=== PATIENT | male | born 1950 | race Caucasian/White ===

== ENCOUNTER 2017-11-01 17:25 | Emergency (ER) | payer OTHER, MEDICARE ==
[2017-11-01] MEDS ORDERED: ASPIRIN 81 MG TABLET, CHEWABLE PO ONE (17:47)
[2017-11-01] MEDS ORDERED: ONDANSETRON HCL INJ/PF 4 MG/2 ML SDV IV ONE ×2 (17:48→22:15)
[2017-11-01] MEDS ORDERED: NORMAL SALINE 1000 ML 1,000 ML IV ONE (17:48)
--- NOTE | 2017-11-01 17:53 | ER Document Report ---
ED Medical Screen (RME) - General Chief Complaint: Vomiting Stated Complaint: VOMITING Time Seen by Provider: 11/01/17 17:47 TRAVEL OUTSIDE OF THE [place] IN LAST 30 DAYS: No - HPI Notes: 11/01/17 17:49 Patient is a 67-year-old male with a history of insulin-dependent diabetes, hypertension, acid reflux who presents to the ED complaining of a dry nonproductive cough, nausea, vomiting, diaphoresis, dyspnea, chest pain, epigastric abdominal pain that began last evening. Patient states that he cannot keep any fluids or food down at this time. Patient denies any other significant cardiac history. Denies any headache, fever, neck pain, URI, sore throat, palpitations, syncope, diarrhea, urinary retention, dysuria, hematuria, or rash. I have treated and performed a rapid initial assessment of this patient. A comprehensive ED assessment and evaluation of the patient, analysis of test results and completion of medical decision making process will be conducted by additional ED providers. PHYSICAL EXAMINATION: GENERAL: A&Ox4. Answers questions appropriately. Pt had several dry heaves during my brief visit with him. LUNGS: Breath sounds clear to auscultation bilaterally and equal. No wheezes rales or rhonchi. HEART: Regular rate and rhythm without murmurs, rubs, gallops. ABDOMEN: not able to perform adequate testing w. pt in a wheelchair. Extremities: No cyanosis, clubbing, or edema b/l. PSYCH: Normal mood, normal affect. - Related Data Allergies/Adverse Reactions: Penicillins Allergy (Unknown, Verified 11/01/17 17:26) Sulfa (Sulfonamide Antibiotics) Allergy (Unknown, Verified 11/01/17 17:26) Past Medical History - Past Medical History Cardiac Medical History: Reports: Hx Hypercholesterolemia, Hx Hypertension, Hx Pulmonary Embolism Endocrine Medical History: Reports: Hx Diabetes Mellitus Type 2 GI Medical History: Reports: Hx Gastroesophageal Reflux Disease Past Surgical History: Reports: Hx Bowel Surgery - colon resection X2, Hx Cholecystectomy, Hx Herniorrhaphy, Hx Testicular Surgery - bilat removed - Immunizations Hx Diphtheria, Pertussis, Tetanus Vaccination: Yes Physical Exam - Vital signs Vitals: Temp Pulse Resp BP Pulse Ox 98.4 F 73 24 H 116/81 95 11/01/17 17:37 11/01/17 17:37 11/01/17 17:37 11/01/17 17:37 11/01/17 17:37 Course - Vital Signs Vital signs: Temp Pulse Resp BP Pulse Ox 98.4 F 73 24 H 116/81 95 11/01/17 17:37 11/01/17 17:37 11/01/17 17:37 11/01/17 17:37 11/01/17 17:37
[2017-11-01 18:52] LABS: ABSOLUTE BASOPHILS # (AUTO) 0.1 10^3/uL (0.0-0.2); ABSOLUTE EOSINOPHILS # (AUTO) 0.1 10^3/uL (0.0-0.6); ABSOLUTE MONOCYTES (AUTO) 0.5 10^3/uL (0.1-1.4); ABSOLUTE NEUT (AUTO) 7.3 10^3/uL (1.7-8.2); BASOPHILS % (AUTO) 1.1 % (0-2); EOSINOPHILS % (AUTO) 1.4 % (0-6); LYMPHOCYTES % (AUTO) 10.7 % (13-45); MEAN CORPUSCULAR HEMOGLOBIN 27.7 pg (27.0-33.4); MEAN CORPUSCULAR HGB CONC 33.3 g/dL (32.0-36.0); MEAN CORPUSCULAR VOLUME 83 fl (80-97); PLATELET COUNT 132 10^3/uL (150-450); RED BLOOD COUNT 5.06 10^6/uL (4.35-5.55); RED CELL DISTRIBUTION WIDTH 13.7 % (11.5-14.0); SEGMENTED NEUTROPHILS % (AUTO) 80.8 % (42-78); TOTAL CELLS COUNTED % (AUTO) 100 %
--- NOTE | 2017-11-01 19:10 | RADIOLOGY REPORT (SQ) ---
EXAM DESCRIPTION: CHEST SINGLE VIEW COMPLETED DATE/TIME: 11/01/2017 6:46 pm REASON FOR STUDY: SOB, chest pain COMPARISON: 09/26/2015 EXAM PARAMETERS: NUMBER OF VIEWS: One view. TECHNIQUE: Single frontal radiographic view of the chest acquired. RADIATION DOSE: NA LIMITATIONS: None. FINDINGS: LUNGS AND PLEURA: No opacities, masses or pneumothorax. No pleural effusion. MEDIASTINUM AND HILAR STRUCTURES: No masses. Contour normal. HEART AND VASCULAR STRUCTURES: Heart normal in size. Normal vasculature. BONES: No acute findings. HARDWARE: None in the chest. OTHER: No other significant finding. IMPRESSION: NO ACUTE RADIOGRAPHIC FINDING IN THE CHEST. TECHNICAL DOCUMENTATION: JOB ID: [id number] [employer]- All Rights Reserved Reading location - IP/workstation name: [email or web address]
[2017-11-01 19:21] LABS: ALANINE AMINOTRANSFERASE 34 U/L (21-72); ALBUMIN 4.5 g/dL (3.5-5.0); ALKALINE PHOSPHATASE 109 U/L (38-126); ANION GAP 13 (5-19); ASPARTATE AMINO TRANSFERASE 46 U/L (17-59); BILIRUBIN,DIRECT 0.3 mg/dL (0.0-0.4); BILIRUBIN,TOTAL 0.4 mg/dL (0.2-1.3); BLOOD UREA NITROGEN 21 mg/dL (7-20); CARBON DIOXIDE 28 mmol/L (22-30); CHLORIDE 100 mmol/L (98-107); CREATINE KINASE 38 U/L (55-170); GLUCOSE 210 mg/dL (75-110); POTASSIUM 4.8 mmol/L (3.6-5.0); SODIUM 140.5 mmol/L (137-145); TOTAL PROTEIN 7.2 g/dL (6.3-8.2)
[2017-11-01 19:38] LABS: CREATINE KINASE MB 0.64 ng/mL (<4.55); NT PRO BNP 29 pg/mL (5-900)
[2017-11-01 19:39] LABS: TROPONIN I < 0.012 ng/mL
[2017-11-01 20:28] LABS: APPEARANCE,URINE SLIGHTLY-CLOUDY; BILIRUBIN,URINE NEGATIVE (NEGATIVE); COLOR,URINE YELLOW; GLUCOSE, URINE 50 mg/dL (NEGATIVE); KETONES,URINE NEGATIVE (NEGATIVE); LEUKOCYTE ESTERASE,URINE NEGATIVE (NEGATIVE); NITRITE,URINE NEGATIVE (NEGATIVE); PROTEIN,URINE 100 mg/dL (NEGATIVE); URINE SPECIFIC GRAVITY 1.024
[2017-11-01] MEDS ORDERED: ONDANSETRON ODT 4 MG TAB (6 TAB/ER DISP) PO PRN (22:15)
--- NOTE | 2017-11-01 22:18 | ER Document Report ---
ED General - General Chief Complaint: Vomiting Stated Complaint: VOMITING Time Seen by Provider: 11/01/17 17:47 Notes: Patient is a 67-year-old male comes emergency department for chief complaint of a cough for several days, congestion, and over the past 24 hours he has had nausea, vomiting, pain in the upper abdomen and up to the chest. Patient states that he could not keep any food or fluids down because of the vomiting over the course of today. Past medical history includes type 2 diabetes, hypertension, hyperlipidemia, GERD. He denies any history of CT or cardiovascular history. He has had history of bowel surgery. Patient has been treated by treated with Zofran, states that this took his nausea only and he feels great, he has been keeping fluids down since. TRAVEL OUTSIDE OF THE [place] IN LAST 30 DAYS: No - Related Data Allergies/Adverse Reactions: Penicillins Allergy (Unknown, Verified 11/01/17 17:26) Sulfa (Sulfonamide Antibiotics) Allergy (Unknown, Verified 11/01/17 17:26) Past Medical History - General Information source: Patient - Social History Smoking Status: Former Smoker Chew tobacco use (# tins/day): No Frequency of alcohol use: None Drug Abuse: None Lives with: Family Family History: Reviewed & Not Pertinent Patient has suicidal ideation: No Patient has homicidal ideation: No - Past Medical History Cardiac Medical History: Reports: Hx Hypercholesterolemia, Hx Hypertension, Hx Pulmonary Embolism Endocrine Medical History: Reports: Hx Diabetes Mellitus Type 2 Renal/ Medical History: Denies: Hx Peritoneal Dialysis GI Medical History: Reports: Hx Gastroesophageal Reflux Disease Past Surgical History: Reports: Hx Bowel Surgery - colon resection X2, Hx Cholecystectomy, Hx Herniorrhaphy, Hx Testicular Surgery - bilat removed has implants - Immunizations Hx Diphtheria, Pertussis, Tetanus Vaccination: Yes Hx Pneumococcal Vaccination: 04/30/13 Review of Systems - Review of Systems Constitutional: See HPI EENT: See HPI Cardiovascular: See HPI Respiratory: See HPI Gastrointestinal: See HPI Genitourinary: No symptoms reported Male Genitourinary: No symptoms reported Musculoskeletal: No symptoms reported Skin: No symptoms reported Hematologic/Lymphatic: No symptoms reported Neurological/Psychological: No symptoms reported Physical Exam - Vital signs Vitals: Temp Pulse Resp BP Pulse Ox 98.4 F 73 24 H 116/81 95 11/01/17 17:37 11/01/17 17:37 11/01/17 17:37 11/01/17 17:37 11/01/17 17:37 - General General appearance: Appears well In distress: None - HEENT Head: Normocephalic, Atraumatic Eyes: Normal Conjunctiva: Normal Extraocular movements intact: Yes Eyelashes: Normal Pupils: PERRL Mouth/Lips: Normal Mucous membranes: Normal Pharynx: Normal Neck: Normal - Respiratory Respiratory status: No respiratory distress. No: Respiratory distress, Labored , Tachypnea Breath sounds: Normal. No: Decreased air movement, Wheezing - Cardiovascular Rhythm: Regular. No: Tachycardia Heart sounds: Normal auscultation, S1 appreciated, S2 appreciated Murmur: No Normal capillary refill: Yes - Abdominal Inspection: Other - Scarring and some distention of the lower abdomen generally , mild tenderness in the lower abdomen, upper abdomen is benign, abdomen is unremarkable otherwise - Back Back: Normal, Nontender. No: Tender - Extremities General upper extremity: Normal inspection, Nontender, Normal strength, Normal temperature General lower extremity: Normal inspection, Nontender, Normal strength, Normal temperature. 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 Soft abdomen, well-appearing, requesting to leave. Patient is already had a full evaluation including unremarkable CBC, chemistry, and he has had 2 sets of negative troponins. Lipase was not checked yet. Chest x-ray also unremarkable. Patient declining additional evaluation including CAT scan imaging of his bowels for vomiting and lipase. I explained to patient that this could be viral but could be more serious, he states that he feels great, he has follow-up, and he will return if he worsens. Abdomen is soft on exam. Patient discharged with nausea medication and return precautions. Patient and state satisfaction and agreement. - Vital Signs Vital signs: Temp Pulse Resp BP Pulse Ox 97.9 F 81 18 137/80 H 93 04/04/18 22:30 11/01/17 22:30 11/01/17 22:30 11/01/17 22:30 11/01/17 22:30 - Laboratory Result Diagrams: 11/01/17 18:25 11/01/17 18:25 Laboratory results interpreted by me: 11/01/17 11/01/17 11/01/17 18:25 18:25 20:00 Plt Count 132 L Seg Neutrophils % 80.8 H Lymphocytes % 10.7 L BUN 21 H Glucose 210 H Creatine Kinase 38 L Urine Protein 100 H Urine Glucose (UA) 50 H Urine Urobilinogen 2.0 H Discharge - Discharge Clinical Impression: Sinus congestion, Cough Vomiting Qualifiers: Vomiting type: unspecified Vomiting Intractability: non-intractable Nausea presence: with nausea Qualified Code(s): R11.2 - Nausea with vomiting, unspecified Chest pain Qualifiers: Chest pain type: unspecified Qualified Code(s): R07.9 - Chest pain, unspecified Condition: Stable Disposition: HOME, SELF-CARE Additional Instructions: Your workup does not show pneumonia or other concerning a normality at this time , your examination suggests developing bronchitis. This is most likely viral, we are covering you with an antibiotic to prevent development of pneumonia. Take Zofran if needed for nausea/vomiting. Drink plenty of fluids and rest. Follow-up with your primary care provider within the next 1-2 days as planned. Return if you worsen including uncontrolled vomiting, difficulty breathing, passing out, or any other concerning or worsening symptoms. Prescriptions: Doxycycline Hyclate 100 mg PO BID #14 capsule Ondansetron [Zofran Odt 4 mg Tablet] 1 - 2 tab PO Q4H PRN #15 tab.rapdis PRN Reason: For Nausea/Vomiting Referrals: MARQUEZ SORENSON DO [Primary Care Provider] - Follow up as needed
--- NOTE | 2017-11-01 23:10 | EKG REPORT ---
SEVERITY:- OTHERWISE NORMAL ECG - SINUS RHYTHM BORDERLINE LEFT AXIS DEVIATION : Confirmed by: Justin Ureña 01-Nov-2017 23:08:36
[2017-11-02 01:05] VITALS: BP 137/80
== END 2017-11-01 22:30 | disposition home or self-care (01) ==
LOC: ER 17:25
DX: R05 Cough (principal); R11.2 Nausea with vomiting, unspecified; R10.10 Upper abdominal pain, unspecified; R68.89 Other general symptoms and signs; E78.00 Pure hypercholesterolemia, unspecified; I10 Essential (primary) hypertension; Z88.0 Allergy status to penicillin; Z88.2 Allergy status to sulfonamides; Z87.891 Personal history of nicotine dependence; Z86.711 Personal history of pulmonary embolism; R07.9 Chest pain, unspecified
CPT/HCPCS: 93005; 96376; 99284; 96361; 96374; 36415; 82553; 82550; 85025; 80053; 81001; 84484; 83880; 71045; 93010; J2405; J7030

== ENCOUNTER 2017-11-10 21:37 | Emergency (ER) | payer OTHER, MEDICARE ==
[2017-11-10] MEDS ORDERED: NORMAL SALINE 1000 ML 1,000 ML IV ONE (21:55)
[2017-11-10 22:00] LABS: ABSOLUTE BASOPHILS # (AUTO) 0.1 10^3/uL (0.0-0.2); ABSOLUTE EOSINOPHILS # (AUTO) 0.3 10^3/uL (0.0-0.6); ABSOLUTE LYMPHOCYTES (AUTO) 2.4 10^3/uL (0.5-4.7); ABSOLUTE MONOCYTES (AUTO) 0.7 10^3/uL (0.1-1.4); ABSOLUTE NEUT (AUTO) 6.3 10^3/uL (1.7-8.2); BASOPHILS % (AUTO) 0.9 % (0-2); EOSINOPHILS % (AUTO) 3.3 % (0-6); HEMATOCRIT 43.3 % (37.9-51.0); HEMOGLOBIN 14.4 g/dL (13.5-17.0); LYMPHOCYTES % (AUTO) 24.3 % (13-45); MEAN CORPUSCULAR HGB CONC 33.3 g/dL (32.0-36.0); MEAN CORPUSCULAR VOLUME 84 fl (80-97); MONOCYTES % (AUTO) 7.3 % (3-13); PLATELET COUNT 139 10^3/uL (150-450); RED BLOOD COUNT 5.15 10^6/uL (4.35-5.55); SEGMENTED NEUTROPHILS % (AUTO) 64.2 % (42-78); TOTAL CELLS COUNTED % (AUTO) 100 %; WHITE BLOOD COUNT 9.8 10^3/uL (4.0-10.5)
--- NOTE | 2017-11-10 23:44 | ER Document Report ---
ED General - General Stated Complaint: NAUSEA Time Seen by Provider: 11/10/17 21:54 Notes: Patient is a 67-year-old male who presents with multiple complaints including nausea, vomiting, gagging, shortness of breath and chest pain. Patient reports that he has episodes in which he begins to burp and feel that there are air bubbles trapped in his chest. He states this does give a aching, throbbing pain in his throat and chest. He states it makes it feel like he cannot breathe or swallow and that he has associated nausea and sometimes vomits clear sputum. He states that he is intermittently had these symptoms for the past 2- 3 weeks ever since he was started on MiraLAX therapy by a GI doctor. He states nothing seems to improve or worsen his symptoms. He denies any ongoing chest pain or shortness of breath at the time of my initial assessment. He denies any focal abdominal pain beyond his chronic left lower quadrant abdominal pain which he notes is not new or different today. He has no cardiac history, no history of DVT or pulmonary embolus. He states his normal oxygen saturation is between 88 and 90% at baseline. He has not seen his primary care doctor regarding today's concerns although was seen in the emergency department approximately a week ago for similar complaints. TRAVEL OUTSIDE OF THE [place] IN LAST 30 DAYS: No - Related Data Allergies/Adverse Reactions: Penicillins Allergy (Unknown, Verified 11/01/17 17:26) Sulfa (Sulfonamide Antibiotics) Allergy (Unknown, Verified 11/01/17 17:26) Past Medical History - General Information source: Patient, Relative - Social History Smoking Status: Never Smoker Frequency of alcohol use: None Drug Abuse: None Lives with: Spouse/Significant other Family History: Reviewed & Not Pertinent - Past Medical History Cardiac Medical History: Reports: Hx Hypercholesterolemia, Hx Hypertension, Hx Pulmonary Embolism Endocrine Medical History: Reports: Hx Diabetes Mellitus Type 2 Renal/ Medical History: Denies: Hx Peritoneal Dialysis GI Medical History: Reports: Hx Gastroesophageal Reflux Disease Past Surgical History: Reports: Hx Bowel Surgery - colon resection X2, Hx Cholecystectomy, Hx Herniorrhaphy, Hx Testicular Surgery - bilat removed has implants - Immunizations Hx Diphtheria, Pertussis, Tetanus Vaccination: Yes Hx Pneumococcal Vaccination: 04/30/13 Review of Systems - Review of Systems Notes: Constitutional: Negative for fever. HENT: Negative for sore throat. Eyes: Negative for visual changes. Cardiovascular: Positive for chest pain. Respiratory: Positive for shortness of breath. Gastrointestinal: Positive for nausea and vomiting Genitourinary: Negative for dysuria. Musculoskeletal: Negative for back pain. Skin: Negative for rash. Neurological: Negative for headaches, weakness or numbness. 10 point ROS negative except as marked above and in HPI. Physical Exam - Vital signs Vitals: Pulse Ox 95 11/10/17 21:52 Interpretation: Normal Notes: PHYSICAL EXAMINATION: GENERAL: Morbidly obese, somewhat chronically ill in appearance but in no acute distress HEAD: Atraumatic, normocephalic. EYES: Pupils equal round and reactive to light, extraocular movements intact, sclera anicteric, conjunctiva are normal. ENT: nares patent, oropharynx clear without exudates. Moderately dry mucous membranes. NECK: Normal range of motion, supple without lymphadenopathy LUNGS: Breath sounds clear to auscultation bilaterally and equal. No wheezes rales or rhonchi. HEART: Regular rate and rhythm without murmurs ABDOMEN: Soft, nontender, normoactive bowel sounds. No guarding, no rebound. No masses appreciated. EXTREMITIES: Normal range of motion, trace edema in the bilateral lower extremity's that is equal and symmetric NEUROLOGICAL: No focal neurological deficits. Moves all extremities spontaneously and on command. PSYCH: Somewhat anxious SKIN: Warm, Dry, normal turgor, multiple plaques diffusely located over the body Course - Re-evaluation Re-evalutation: 11/10/17 23:43 Patient presents with multiple episodes in which she describes having postnasal drip with associated gagging and reflux symptoms but does also note that he has had some episodes of associated shortness of breath and nausea as well as intermittent chest pain with these episodes. Patient was seen approximately a week ago for the same and had a reassuring evaluation at that time. Patient denies any cardiac history. He is very pleasant on contact, states he overall feels much better. His initial troponin is normal and his EKG is without ischemic changes. Will do a repeat troponin II hours from initial to ensure that there is no change in the troponin and if this remains normal the patient would like to go home. The patient does deny any abdominal pain that is new or different from his baseline pain and has no focal abdominal tenderness on examination to suggest an intra-abdominal pathology as the etiology of his presentation today. He states that baseline he has a oxygen saturation between 88 and 90% which is where it is resting today. This is again not new or different than normal. Chest x-ray is clear without any acute changes. 11/11/17 01:30 Patient has had 1 of the episodes similar to what he has been having at home in which she is obviously burping and gagging, having very severe reflux. This has improved with a GI cocktail and I have instructed him to discontinue the MiraLAX that he was started on originally as his symptoms started thereafter. He will be discharged with recommendations to follow up with his primary care doctor, continue his omeprazole. At this time will discharge with return precautions and follow-up recommendations. Verbal discharge instructions given a the bedside and opportunity for questions given. Medication warnings reviewed. Patient is in agreement with this plan and has verbalized understanding of return precautions and the need for primary care follow-up in the next 24-72 hours. - Vital Signs Vital signs: Temp Pulse Resp BP Pulse Ox 98 F 83 18 128/77 H 92 11/11/17 01:45 11/11/17 01:45 11/11/17 01:45 11/11/17 01:45 11/11/17 01:45 - Laboratory Result Diagrams: 11/10/17 20:59 11/10/17 23:52 Laboratory results interpreted by me: 11/10/17 11/10/17 20:59 23:52 Plt Count 139 L Glucose 130 H - Diagnostic Test Radiology reviewed: Image reviewed, Reports reviewed Radiology results interpreted by me: 11/11/17 01:31 Chest x-ray: No acute infiltrate or pneumothorax - EKG Interpretation by Me Additional EKG results interpreted by me: 11/11/17 01:31 Sided junctional rhythm. Rate 98. No ST elevations or depressions. QTC 450. Discharge - Discharge Clinical Impression: Nausea and vomiting Qualifiers: Vomiting type: unspecified Vomiting Intractability: non-intractable Qualified Code(s): R11.2 - Nausea with vomiting, unspecified Esophageal reflux Qualifiers: Esophagitis presence: esophagitis presence not specified Qualified Code(s): K21.9 - Gastro-esophageal reflux disease without esophagitis Chest pain Qualifiers: Chest pain type: unspecified Qualified Code(s): R07.9 - Chest pain, unspecified Condition: Good Disposition: HOME, SELF-CARE Additional Instructions: Your symptoms appear to be most consistent with stomach or upper intestinal irritation. Please begin taking famotidine 40 mg in the morning and 40 mg at night. This medicine can be purchased directly [id number]. You may also take medicine such as Pepto-Bismol or Tums to assist with your pain. Please return to emergency department immediately if you have worsening of your pain, shortness of breath, vomiting, become unable to exert yourself due to pain or difficulty breathing, you pass out, or have any pain that radiates into your arms, jaw, or back. Please also return if you have any additional symptoms that are concerning to you. As we have discussed, the most important thing is lifestyle changes. You need to avoid smoking, sodas, tea, coffee, alcohol, spicy foods, and acidic foods such as citrus fruits, tomato based products, berries, and most fruit juices. Referrals: MARQUEZ SORENSON DO [Primary Care Provider] - Follow up as needed
[2017-11-11 00:16] LABS: ALANINE AMINOTRANSFERASE 29 U/L (21-72); ALBUMIN 3.9 g/dL (3.5-5.0); ALKALINE PHOSPHATASE 105 U/L (38-126); ANION GAP 14 (5-19); ASPARTATE AMINO TRANSFERASE 43 U/L (17-59); BILIRUBIN,DIRECT 0.3 mg/dL (0.0-0.4); BILIRUBIN,TOTAL 0.4 mg/dL (0.2-1.3); BLOOD UREA NITROGEN 20 mg/dL (7-20); CALCIUM 9.3 mg/dL (8.4-10.2); CARBON DIOXIDE 22 mmol/L (22-30); CHLORIDE 107 mmol/L (98-107); GLUCOSE 130 mg/dL (75-110); LIPASE 59.7 U/L (23-300); POTASSIUM 4.9 mmol/L (3.6-5.0); SODIUM 142.5 mmol/L (137-145); TOTAL PROTEIN 6.3 g/dL (6.3-8.2)
--- NOTE | 2017-11-11 00:28 | RADIOLOGY REPORT (SQ) ---
EXAM DESCRIPTION: CHEST SINGLE VIEW CLINICAL HISTORY: 67 years Male, shortness of breath COMPARISON: November 01, 2017 NUMBER OF VIEWS/TECHNIQUE: 1/AP LIMITATIONS: None. FINDINGS: Normal lung volume, clear parenchyma, normal cardiac silhouette, and intact bony thorax. IMPRESSION: No acute cardiopulmonary findings.
[2017-11-11] MEDS ORDERED: MAG HYDROX/AL HYDROX/SIMETH SUSP 30 ML UDCUP PO ONE (00:57)
[2017-11-11] MEDS ORDERED: METOCLOPRAMIDE HCL ORAL SOLN 10 MG/10 ML UDCUP PO ONE (00:57)
[2017-11-11] MEDS ORDERED: LIDOCAINE 2% VISCOUS SOLN 20 ML UDCUP PO ONE (00:57)
[2017-11-11] MEDS ORDERED: FAMOTIDINE 20 MG TABLET PO ONE (00:57)
[2017-11-11] MEDS ORDERED: ONDANSETRON HCL INJ/PF 4 MG/2 ML SDV IV ONE (00:58)
[2017-11-11 03:02] VITALS: BP 128/77
--- NOTE | 2017-11-11 08:45 | EKG REPORT ---
SEVERITY:- ABNORMAL ECG - SINUS RHYTHM LEFT AXIS DEVIATION NONSPECIFIC ST-T CHANGES INFERIOR LEADS : Confirmed by: Ash Curry MD 11-Nov-2017 08:44:56
== END 2017-11-11 01:45 | disposition home or self-care (01) ==
LOC: ER 21:37
DX: K21.9 Gastro-esophageal reflux disease without esophagitis (principal); R07.9 Chest pain, unspecified; R11.2 Nausea with vomiting, unspecified; R06.02 Shortness of breath; R10.32 Left lower quadrant pain; G89.29 Other chronic pain; I10 Essential (primary) hypertension; E11.9 Type 2 diabetes mellitus without complications
CPT/HCPCS: 93005; 99284; 96361; 96374; 36415; 83690; 85025; 80053; 84484; 71045; 93010; J3490; J2405; J7030

== ENCOUNTER 2018-09-10 16:53 | Emergency (ER) | payer OTHER, MEDICARE ==
[2018-09-10] MEDS ORDERED: ASPIRIN 81 MG TABLET, CHEWABLE PO ONE (17:33)
--- NOTE | 2018-09-10 17:42 | ER Document Report ---
ED Medical Screen (RME) - General Chief Complaint: Chest Pain Stated Complaint: confusion Time Seen by Provider: 09/10/18 17:24 Primary Care Provider: MARQUEZ SORENSON DO [Primary Care Provider] - Follow up as needed Mode of Arrival: Wheelchair Information source: Patient Notes: 67-year-old's male with a history of diabetes and hypertension presents the emergency department with complaints of chest pain and confusion that started this morning. Chest pain is an aching sensation in the center of the chest. No alleciating or exacerbating factors. He denies shortness of breath. Patient has a history of cancer but is unable to tell me what kind of cancer he has. He states that he is following up with Dr. Escobar. He had chemotherapy done a month ago. He is been having diarrhea after the chemotherapy as well as increased thirst. He denies any fever but has been having rhinorrhea and a dry cough. says that he's not able to remember details from today. This is not like the patient. He denies blurred vision, speech changes, numbness, tingling, weakness, ataxia. I have greeted and performed a rapid initial assessment of this patient. A comprehensive ED assessment and evaluation of the patient, analysis of test results and completion of the medical decision making process will be conducted by additional ED providers. PHYSICAL EXAMINATION: GENERAL: Ill appearing. HEAD: Atraumatic, normocephalic. EYES: Pupils equal round extraocular movements intact, conjunctiva are normal. ENT: Nares patent NECK: Normal range of motion LUNGS: No respiratory distress Musculoskeletal: Normal range of motion NEUROLOGICAL: Normal speech. TRAVEL OUTSIDE OF THE [place] IN LAST 30 DAYS: No - Related Data Allergies/Adverse Reactions: Penicillins Allergy (Unknown, Verified 11/01/17 17:26) Sulfa (Sulfonamide Antibiotics) Allergy (Unknown, Verified 11/01/17 17:26) Past Medical History - Social History Chew tobacco use (# tins/day): No Drug Abuse: None - Past Medical History Cardiac Medical History: Reports: Hx Hypercholesterolemia, Hx Hypertension, Hx Pulmonary Embolism Endocrine Medical History: Reports: Hx Diabetes Mellitus Type 2 Renal/ Medical History: Denies: Hx Peritoneal Dialysis GI Medical History: Reports: Hx Gastroesophageal Reflux Disease Past Surgical History: Reports: Hx Bowel Surgery - colon resection X2, Hx Cholecystectomy, Hx Herniorrhaphy, Hx Testicular Surgery - bilat removed has implants - Immunizations Hx Diphtheria, Pertussis, Tetanus Vaccination: Yes Physical Exam - Vital signs Vitals: Temp Pulse Resp BP Pulse Ox 97.8 F 75 20 152/69 H 97 09/10/18 17:15 09/10/18 17:15 09/10/18 17:15 09/10/18 17:15 09/10/18 17:15 Course - Vital Signs Vital signs: Temp Pulse Resp BP Pulse Ox 97.8 F 75 20 152/69 H 97 09/10/18 17:15 09/10/18 17:15 09/10/18 17:15 09/10/18 17:15 09/10/18 17:15 Doctor's Discharge - Discharge Referrals: MARQUEZ SORENSON DO [Primary Care Provider] - Follow up as needed
--- NOTE | 2018-09-10 18:05 | RADIOLOGY REPORT (SQ) ---
EXAM DESCRIPTION: CHEST SINGLE VIEW COMPLETED DATE/TIME: 09/10/2018 5:54 pm REASON FOR STUDY: chest pain COMPARISON: CT chest 11/28/2011 Chest films 08/15/2013, 09/26/2015, 11/01/2017 EXAM PARAMETERS: NUMBER OF VIEWS: One view. TECHNIQUE: Single frontal radiographic view of the chest acquired. RADIATION DOSE: NA LIMITATIONS: None. FINDINGS: LUNGS AND PLEURA: No opacities, masses or pneumothorax. No pleural effusion. MEDIASTINUM AND HILAR STRUCTURES: No masses. Contour normal. HEART AND VASCULAR STRUCTURES: Heart normal in size. Normal vasculature. BONES: No acute findings. HARDWARE: None in the chest. OTHER: No other significant finding. IMPRESSION: NO ACUTE RADIOGRAPHIC FINDING IN THE CHEST. TECHNICAL DOCUMENTATION: JOB ID: [id number] [employer]- All Rights Reserved Reading location - IP/workstation name: [email or web address]
[2018-09-10] MEDS ORDERED: LORAZEPAM INJ 2 MG/1 ML VIAL IV ONE (18:13)
[2018-09-10 18:48] LABS: APPEARANCE,URINE CLEAR; BILIRUBIN,URINE NEGATIVE (NEGATIVE); COLOR,URINE YELLOW; GLUCOSE, URINE NEGATIVE (NEGATIVE); KETONES,URINE NEGATIVE (NEGATIVE); LEUKOCYTE ESTERASE,URINE NEGATIVE (NEGATIVE); NITRITE,URINE NEGATIVE (NEGATIVE); PROTEIN,URINE NEGATIVE (NEGATIVE); URINE SPECIFIC GRAVITY 1.013; UROBILINOGEN,URINE NEGATIVE mg/dL (<2.0)
[2018-09-10 19:02] LABS: URINE AMPHETAMINES SCREEN NEGATIVE; URINE BARBITURATES SCREEN NEGATIVE; URINE BENZODIAZEPINES SCREEN NEGATIVE; URINE COCAINE SCREEN NEGATIVE; URINE MARIJUANA (THC) SCREEN UNCONFIRMED POSITIVE; URINE METHADONE SCREEN NEGATIVE; URINE PHENCYCLIDINE SCREEN NEGATIVE
--- NOTE | 2018-09-10 19:06 | ER Document Report ---
ED General - General Chief Complaint: Chest Pain Stated Complaint: confusion Time Seen by Provider: 09/10/18 17:24 Primary Care Provider: SOHEILA SIM MD [ACTIVE STAFF] - Follow up tomorrow MARQUEZ SORENSON DO [Primary Care Provider] - Follow up in 3-5 days Mode of Arrival: Wheelchair Notes: Patient is a 67-year-old male with history of neuroendocrine neoplasia that presents to the emergency department for chief complaint of confusion. Patient states that earlier today he had a brief period of time where he was feeling confused, he states he was unable to recall some phone numbers, and felt that he got his medicines possibly mixed up this was transient and only lasted for a few hours and then seemed to have completely resolved at this time. He has not had symptoms like this in the past. He is on many medications, including chemotherapy injection which is relatively new, and he was increased on his Marinol recently as well he is not sure if these medications have had an effect. His blood glucose levels have been ranging from 100-130 today, which is normal for him. At this time he denies having any complaints. Denies headache, lightheadedness, dizziness, chest pain, shortness of breath, nausea or vomiting. He otherwise feels well and actually wants to be discharged home at this time. Past Medical History: Diabetes mellitus, neuroendocrine neoplasia, hypertension, chronic pain Past Surgical History: Multiple abdominal surgeries, bowel resection, cholecystectomy Social History: Former smoker, quit many years ago, denies alcohol or drug use. Family History: Reviewed and noncontributory for presenting illness Allergies: Reviewed, see documented allergy list. REVIEW OF SYSTEMS: Other than noted above, the 12 point review of systems was reviewed with the patient and were negative, all pertinent findings are included in the HPI. PHYSICAL EXAMINATION: Vital signs reviewed, nursing noted reviewed. GENERAL: Elderly, obese male, no acute distress HEAD: Atraumatic, normocephalic. EYES: Eyes appear normal, extraocular movements intact, sclera anicteric, c onjunctiva are normal. ENT: nares patent, oropharynx clear without exudates. Moist mucous membranes. NECK: Normal range of motion, supple without lymphadenopathy LUNGS: Breath sounds clear to auscultation bilaterally and equal. No wheezes rales or rhonchi. HEART: Regular rate and rhythm without murmurs ABDOMEN: Soft, obese, mild left upper quadrant tenderness to palpation, chronic per patient, surgical incisional scars noted, well-healed, normoactive bowel sounds. No rebound, guarding, or rigidity. No masses appreciated. EXTREMITIES: Nontender, good range of motion, no pitting or edema. NEUROLOGICAL: No focal neurological deficits. Moves all extremities spontaneously Motor and sensory grossly intact on exam. NIH stroke scale score: 0 PSYCH: Normal mood, normal affect. SKIN: Warm, Dry, normal turgor, no rashes or lesions noted on exposed skin TRAVEL OUTSIDE OF THE [place] IN LAST 30 DAYS: No - Related Data Allergies/Adverse Reactions: Penicillins Allergy (Unknown, Verified 11/01/17 17:26) Sulfa (Sulfonamide Antibiotics) Allergy (Unknown, Verified 11/01/17 17:26) Past Medical History - General Information source: Patient - Social History Smoking Status: Former Smoker Chew tobacco use (# tins/day): No Drug Abuse: None Family History: Reviewed & Not Pertinent Patient has suicidal ideation: No Patient has homicidal ideation: No - Past Medical History Cardiac Medical History: Reports: Hx Hypercholesterolemia, Hx Hypertension, Hx Pulmonary Embolism Endocrine Medical History: Reports: Hx Diabetes Mellitus Type 2 Renal/ Medical History: Denies: Hx Peritoneal Dialysis GI Medical History: Reports: Hx Gastroesophageal Reflux Disease Past Surgical History: Reports: Hx Bowel Surgery - colon resection X2, Hx Cholecystectomy, Hx Herniorrhaphy, Hx Testicular Surgery - bilat removed has implants - Immunizations Hx Diphtheria, Pertussis, Tetanus Vaccination: Yes Hx Pneumococcal Vaccination: 04/30/13 Physical Exam - Vital signs Vitals: Temp Pulse Resp BP Pulse Ox 97.8 F 75 20 152/69 H 97 09/10/18 17:15 09/10/18 17:15 09/10/18 17:15 09/10/18 17:15 09/10/18 17:15 Course - Re-evaluation Re-evalutation: Patient seen and examined vital signs reviewed. Laboratory data and imaging were ordered as appropriate for the patient's presenting symptoms and complaint, with consideration of any critical or life threatening conditions that may be associated with their obtained history and exam as noted above. Results were reviewed when available and demonstrated mild anemia, and patient baseline, CT scan of the head was negative, blood work was otherwise unremarkable and unchanged from prior lab work The patient was re-evaluated and was stable, no focal neurological findings, patient was wanting to be discharged home, he does take aspirin 81 mg daily, encouraged him to continue doing this, and watch for any worsening symptoms, if he did have recurrence of his symptoms, or any other neurological findings, to return to the emergency department immediately. Shared decision making, discussed with the patient possible observation in the hospital, for possible TIA, however he declined wanting to be in the hospital, he is severely claustrophobic, would not tolerate MRI, and he felt more comfortable being at home, his is very attentive to him, they had any worsening symptoms they would return to the emergency department. I did not change his aspirin, because he does have a history of bleeding in the past and left it at 81 mg daily. Advised him to follow-up, he does have an appoint with his oncologist tomorrow. Evaluation was most consistent with intermittent confusion Results were discussed with the patient at this point, after careful consideration I feel that that patient can be discharged from the emergency department, the patient was educated treatments and reasons to return to the emergency department based on their presumed diagnosis as noted above, they were advised to followup with a primary care physician in 2-3 days. Patient was agreeable to plan of care. *Note is created using voice recognition software and may contain spelling, syntax or grammatical errors. Laboratory 09/10/18 09/10/18 09/10/18 18:20 18:20 19:59 WBC 7.5 RBC 4.44 Hgb 12.2 L Hct 35.8 L MCV 81 MCH 27.4 MCHC 34.0 RDW 14.6 H Plt Count 108 L Seg Neutrophils % 73.6 Lymphocytes % 16.3 Monocytes % 6.0 Eosinophils % 3.3 Basophils % 0.8 Absolute Neutrophils 5.5 Absolute Lymphocytes 1.2 Absolute Monocytes 0.5 Absolute Eosinophils 0.2 Absolute Basophils 0.1 Sodium Potassium Chloride Carbon Dioxide Anion Gap BUN Creatinine Est GFR ( Amer) Est GFR (Non-Af Amer) Glucose Calcium Total Bilirubin Direct Bilirubin Neonat Total Bilirubin Neonat Direct Bilirubin Neonat Indirect Bili AST ALT Alkaline Phosphatase Total Protein Albumin TSH Free T4 Urine Color YELLOW Urine Appearance CLEAR Urine pH 5.0 Ur Specific Foster 1.013 Urine Protein NEGATIVE Urine Glucose (UA) NEGATIVE Urine Ketones NEGATIVE Urine Blood NEGATIVE Urine Nitrite NEGATIVE Urine Bilirubin NEGATIVE Urine Urobilinogen NEGATIVE Ur Leukocyte Esterase NEGATIVE Urine WBC (Auto) 0 Urine Mucus (Auto) RARE Urine Ascorbic Acid NEGATIVE Urine Opiates Screen NEGATIVE Urine Methadone Screen NEGATIVE Ur Barbiturates Screen NEGATIVE Ur Phencyclidine Scrn NEGATIVE Ur Amphetamines Screen NEGATIVE U Benzodiazepines Scrn NEGATIVE Urine Cocaine Screen NEGATIVE U Marijuana (THC) Screen UNCONFIRMED POSITIVE 09/10/18 09/10/18 19:59 19:59 WBC RBC Hgb Hct MCV MCH MCHC RDW Plt Count Seg Neutrophils % Lymphocytes % Monocytes % Eosinophils % Basophils % Absolute Neutrophils Absolute Lymphocytes Absolute Monocytes Absolute Eosinophils Absolute Basophils Sodium 143.3 Potassium 4.2 Chloride 108 H Carbon Dioxide 22 Anion Gap 13 BUN 16 Creatinine 0.80 Est GFR ( Amer) > 60 Est GFR (Non-Af Amer) > 60 Glucose 138 H Calcium 9.1 Total Bilirubin 0.3 Direct Bilirubin 0.3 Neonat Total Bilirubin Not Reportable Neonat Direct Bilirubin Not Reportable Neonat Indirect Bili Not Reportable AST 24 ALT 18 L Alkaline Phosphatase 112 Total Protein 6.5 Albumin 4.1 TSH 2.57 Free T4 1.04 Urine Color Urine Appearance Urine pH Ur Specific Foster Urine Protein Urine Glucose (UA) Urine Ketones Urine Blood Urine Nitrite Urine Bilirubin Urine Urobilinogen Ur Leukocyte Esterase Urine WBC (Auto) Urine Mucus (Auto) Urine Ascorbic Acid Urine Opiates Screen Urine Methadone Screen Ur Barbiturates Screen Ur Phencyclidine Scrn Ur Amphetamines Screen U Benzodiazepines Scrn Urine Cocaine Screen U Marijuana (THC) Screen Chest X-Ray 09/10/18 17:33 IMPRESSION: NO ACUTE RADIOGRAPHIC FINDING IN THE CHEST. Head CT 09/10/18 17:34 IMPRESSION: NORMAL BRAIN CT WITHOUT CONTRAST. EVIDENCE OF ACUTE STROKE: NO. - Vital Signs Vital signs: Temp Pulse Resp BP Pulse Ox 98.5 F 75 16 128/61 H 95 09/10/18 20:01 09/10/18 17:15 09/10/18 20:01 09/10/18 20:01 09/10/18 20:01 - Laboratory Result Diagrams: 09/10/18 19:59 09/10/18 19:59 Laboratory results interpreted by me: 09/10/18 09/10/18 19:59 19:59 Hgb 12.2 L Hct 35.8 L RDW 14.6 H Plt Count 108 L Chloride 108 H Glucose 138 H ALT 18 L Discharge - Discharge Clinical Impression: Confusion Condition: Stable Disposition: HOME, SELF-CARE Instructions: Altered Mental Status ([facility]) Additional Instructions: It is possible that your symptoms were of a TIA or mini stroke, so you need to monitor for symptoms over the next 48 hours, continue taking the aspirin as previously prescribed, and continue taking your other medications as prescribed, if you have further concerns or worsening symptoms or develop difficulty speaking, slurred speech, numbness, weakness or tingling in any of your arms or legs, do not hesitate to return to the emergency department immediately and call 911. Referrals: MARQUEZ SORENSON DO [Primary Care Provider] - Follow up in 3-5 days SOHEILA SIM MD [ACTIVE STAFF] - Follow up tomorrow
--- NOTE | 2018-09-10 19:25 | RADIOLOGY REPORT (SQ) ---
EXAM DESCRIPTION: CT HEAD WITHOUT COMPLETED DATE/TIME: 09/10/2018 6:46 pm REASON FOR STUDY: ams COMPARISON: None. TECHNIQUE: Axial images acquired through the brain without intravenous contrast. Images reviewed wi th bone, brain and subdural windows. Additional sagittal and coronal reconstructions were generated. Images stored on PACS. All CT scanners at this facility use dose modulation, iterative reconstruction, and/or weight based d osing when appropriate to reduce radiation dose to as low as reasonably achievable (ALARA). [facility]: Dose Right [facility]: CareDose [facility]: Dose Right [facility]: Teradose 4D [facility]: Anews RADIATION DOSE: CT Rad equipment meets quality standard of care and radiation dose reduction techniq ues were employed. CTDIvol: 53.2 mGy. DLP: 991 mGy-cm. mGy. LIMITATIONS: None. FINDINGS: VENTRICLES: Normal size and contour. CEREBRUM: No masses. No hemorrhage. No midline shift. No evidence for acute infarction. Normal gra y/white matter differentiation. No areas of low density in the white matter. CEREBELLUM: No masses. No hemorrhage. No alteration of density. No evidence for acute infarction. EXTRAAXIAL SPACES: No fluid collections. No masses. ORBITS AND GLOBE: No intra- or extraconal masses. Normal contour of globe without masses. CALVARIUM: No fracture. PARANASAL SINUSES: No fluid or mucosal thickening. SOFT TISSUES: No mass or hematoma. OTHER: No other significant finding. IMPRESSION: NORMAL BRAIN CT WITHOUT CONTRAST. EVIDENCE OF ACUTE STROKE: NO. COMMENT: Quality ID # [id number]: Final reports with documentation of one or more dose reduction techniques (e.g., Automated exposure control, adjustment of the mA and/or kV according to patient size, use of iterative reconstruction technique) TECHNICAL DOCUMENTATION: JOB ID: [id number] [employer]- All Rights Reserved Reading location - IP/workstation name: [email or web address]
[2018-09-10 20:14] LABS: ABSOLUTE BASOPHILS # (AUTO) 0.1 10^3/uL (0.0-0.2); ABSOLUTE EOSINOPHILS # (AUTO) 0.2 10^3/uL (0.0-0.6); ABSOLUTE LYMPHOCYTES (AUTO) 1.2 10^3/uL (0.5-4.7); ABSOLUTE MONOCYTES (AUTO) 0.5 10^3/uL (0.1-1.4); ABSOLUTE NEUT (AUTO) 5.5 10^3/uL (1.7-8.2); BASOPHILS % (AUTO) 0.8 % (0-2); EOSINOPHILS % (AUTO) 3.3 % (0-6); HEMATOCRIT 35.8 % (37.9-51.0); HEMOGLOBIN 12.2 g/dL (13.5-17.0); LYMPHOCYTES % (AUTO) 16.3 % (13-45); MEAN CORPUSCULAR HEMOGLOBIN 27.4 pg (27.0-33.4); MEAN CORPUSCULAR VOLUME 81 fl (80-97); PLATELET COUNT 108 10^3/uL (150-450); RED BLOOD COUNT 4.44 10^6/uL (4.35-5.55); RED CELL DISTRIBUTION WIDTH 14.6 % (11.5-14.0); SEGMENTED NEUTROPHILS % (AUTO) 73.6 % (42-78); TOTAL CELLS COUNTED % (AUTO) 100 %; WHITE BLOOD COUNT 7.5 10^3/uL (4.0-10.5)
[2018-09-10 20:34] LABS: ALANINE AMINOTRANSFERASE 18 U/L (21-72); ALBUMIN 4.1 g/dL (3.5-5.0); ALKALINE PHOSPHATASE 112 U/L (38-126); ANION GAP 13 (5-19); ASPARTATE AMINO TRANSFERASE 24 U/L (17-59); BILIRUBIN,DIRECT 0.3 mg/dL (0.0-0.4); BILIRUBIN,TOTAL 0.3 mg/dL (0.2-1.3); BLOOD UREA NITROGEN 16 mg/dL (7-20); CALCIUM 9.1 mg/dL (8.4-10.2); CARBON DIOXIDE 22 mmol/L (22-30); CHLORIDE 108 mmol/L (98-107); GLUCOSE 138 mg/dL (75-110); POTASSIUM 4.2 mmol/L (3.6-5.0); SODIUM 143.3 mmol/L (137-145); TOTAL PROTEIN 6.5 g/dL (6.3-8.2)
[2018-09-10 20:50] LABS: FREE T4 (FREE THYROXINE) 1.04 ng/dL (0.78-2.19)
[2018-09-10 20:59] VITALS: BP 128/61
[2018-09-10 21:04] LABS: THYROID STIMULATING HORMONE 2.57 uIU/mL (0.47-4.68)
--- NOTE | 2018-09-10 23:20 | EKG REPORT ---
SEVERITY:- OTHERWISE NORMAL ECG - SINUS RHYTHM BORDERLINE LEFT AXIS DEVIATION : Confirmed by: Mae Silva MD 10-Sep-2018 23:20:17
== END 2018-09-10 21:00 | disposition home or self-care (01) ==
LOC: ER 16:53
DX: R07.9 Chest pain, unspecified (principal); R41.0 Disorientation, unspecified; E11.65 Type 2 diabetes mellitus with hyperglycemia; I10 Essential (primary) hypertension; Z87.891 Personal history of nicotine dependence
CPT/HCPCS: 93005; 99285; 96374; 36415; 87086; 84439; 84443; 85025; 80053; 81001; 80307; 71045; 70450; 93010; J2060

== ENCOUNTER 2018-11-16 18:11 | Emergency (ER) | payer OTHER, MEDICARE ==
[2018-11-16] MEDS ORDERED: ONDANSETRON HCL INJ/PF 4 MG/2 ML SDV IV ONE (18:35)
[2018-11-16] MEDS ORDERED: NORMAL SALINE 1000 ML 1,000 ML IV ONE (18:35)
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
[2018-11-16 19:20] LABS: ABSOLUTE BASOPHILS # (AUTO) 0.1 10^3/uL (0.0-0.2); ABSOLUTE EOSINOPHILS # (AUTO) 0.3 10^3/uL (0.0-0.6); ABSOLUTE MONOCYTES (AUTO) 0.5 10^3/uL (0.1-1.4); ABSOLUTE NEUT (AUTO) 6.1 10^3/uL (1.7-8.2); BASOPHILS % (AUTO) 1.4 % (0-2); EOSINOPHILS % (AUTO) 3.3 % (0-6); HEMATOCRIT 38.3 % (37.9-51.0); HEMOGLOBIN 12.8 g/dL (13.5-17.0); LYMPHOCYTES % (AUTO) 12.8 % (13-45); MEAN CORPUSCULAR HEMOGLOBIN 27.1 pg (27.0-33.4); MEAN CORPUSCULAR HGB CONC 33.3 g/dL (32.0-36.0); MEAN CORPUSCULAR VOLUME 82 fl (80-97); MONOCYTES % (AUTO) 6.3 % (3-13); PLATELET COUNT 124 10^3/uL (150-450); RED CELL DISTRIBUTION WIDTH 15.6 % (11.5-14.0); SEGMENTED NEUTROPHILS % (AUTO) 76.2 % (42-78); TOTAL CELLS COUNTED % (AUTO) 100 %
[2018-11-16 19:37] LABS: ALANINE AMINOTRANSFERASE 34 U/L (21-72); ALKALINE PHOSPHATASE 145 U/L (38-126); ANION GAP 8 (5-19); ASPARTATE AMINO TRANSFERASE 39 U/L (17-59); BILIRUBIN,DIRECT 0.4 mg/dL (0.0-0.4); BILIRUBIN,TOTAL 0.4 mg/dL (0.2-1.3); BLOOD UREA NITROGEN 19 mg/dL (7-20); CALCIUM 9.2 mg/dL (8.4-10.2); CARBON DIOXIDE 22 mmol/L (22-30); CHLORIDE 110 mmol/L (98-107); GLUCOSE 140 mg/dL (75-110); POTASSIUM 3.9 mmol/L (3.6-5.0); SODIUM 140.4 mmol/L (137-145)
[2018-11-16 19:51] LABS: APPEARANCE,URINE CLEAR; BILIRUBIN,URINE NEGATIVE (NEGATIVE); COLOR,URINE YELLOW; GLUCOSE, URINE NEGATIVE (NEGATIVE); KETONES,URINE NEGATIVE (NEGATIVE); LEUKOCYTE ESTERASE,URINE NEGATIVE (NEGATIVE); NITRITE,URINE NEGATIVE (NEGATIVE); PROTEIN,URINE NEGATIVE (NEGATIVE); URINE SPECIFIC GRAVITY 1.017; UROBILINOGEN,URINE NEGATIVE mg/dL (<2.0)
[2018-11-16] MEDS ORDERED: OXYCODONE HCL IR 5 MG TABLET PO ONE (20:22)
--- NOTE | 2018-11-16 20:30 | ER Document Report ---
ED General - General Chief Complaint: Nausea/Vomiting/Diarrhea Stated Complaint: POSSIBLE GI TUMOR Time Seen by Provider: 11/16/18 18:35 Primary Care Provider: MARQUEZ SORENSON DO [Primary Care Provider] - Follow up as needed Mode of Arrival: Wheelchair Notes: 68-year-old male presented to ED for confusion nausea vomiting and diarrhea. He was sent over by to have exam and IV fluids medications for nausea and to be evaluated. Patient had a history of GI cancer, hypertension, diabe shima. Patient has a long-standing history of daily diarrhea, had 6-7 diarrheal bowel movements today as well as one episode of vomiting. He and his both report that this is has been a long-standing issue, not definitely new or worse today given that he was having some mild confusion which reports that she quite normal when he gets dehydrated, the oncologist sent patient to the emergency department for assessment. When I evaluate the patient states that he feels fine "does not want to waste my time or your time" and would like to go home. He denies any focal abdominal pain. He states that nothing seems to improve or worsen his symptoms. Regards him as being mild to moderate, improved since arrival to the emergency department without intervention. He has not had fever, passed out, chest pain or shortness of breath. TRAVEL OUTSIDE OF THE [place] IN LAST 30 DAYS: No - Related Data Allergies/Adverse Reactions: Penicillins Allergy (Unknown, Verified 11/01/17 17:26) Sulfa (Sulfonamide Antibiotics) Allergy (Unknown, Verified 11/01/17 17:26) Past Medical History - General Information source: Patient - Social History Smoking Status: Former Smoker Frequency of alcohol use: None Drug Abuse: None Lives with: Spouse/Significant other Family History: Reviewed & Not Pertinent Patient has suicidal ideation: No Patient has homicidal ideation: No - Past Medical History Cardiac Medical History: Reports: Hx Hypercholesterolemia, Hx Hypertension, Hx Pulmonary Embolism Endocrine Medical History: Reports: Hx Diabetes Mellitus Type 2 Renal/ Medical History: Denies: Hx Peritoneal Dialysis GI Medical History: Reports: Hx Gastroesophageal Reflux Disease Past Surgical History: Reports: Hx Bowel Surgery - colon resection X2, Hx Cholecystectomy, Hx Herniorrhaphy, Hx Testicular Surgery - bilat removed has implants - Immunizations Hx Diphtheria, Pertussis, Tetanus Vaccination: Yes Hx Pneumococcal Vaccination: 04/30/13 Review of Systems - Review of Systems Notes: Constitutional: Negative for fever. Positive for lightheadedness HENT: Negative for sore throat. Eyes: Negative for visual changes. Cardiovascular: Negative for chest pain. Respiratory: Negative for shortness of breath. Gastrointestinal: Negative for abdominal pain, positive for vomiting and diarrhea Genitourinary: Negative for dysuria. Musculoskeletal: Negative for back pain. Skin: Negative for rash. Neurological: Negative for headaches, weakness or numbness. 10 point ROS negative except as marked above and in HPI. Physical Exam - Vital signs Vitals: Temp Pulse Resp BP Pulse Ox 98.1 F 67 20 151/76 H 95 11/16/18 18:25 11/16/18 18:25 11/16/18 18:25 11/16/18 18:25 11/16/18 18:25 Interpretation: Hypertensive Notes: PHYSICAL EXAMINATION: GENERAL: Well-appearing, well-nourished and in no acute distress. HEAD: Atraumatic, normocephalic. EYES: Pupils equal round and reactive to light, extraocular movements intact, sclera anicteric, conjunctiva are normal. ENT: nares patent, oropharynx clear without exudates. Mildly dry mucous membranes. NECK: Normal range of motion, supple without lymphadenopathy LUNGS: Breath sounds clear to auscultation bilaterally and equal. No wheezes rales or rhonchi. HEART: Regular rate and rhythm without murmurs ABDOMEN: Soft, obese abdomen, nontender, normoactive bowel sounds. No guarding, no rebound. No masses appreciated. EXTREMITIES: Normal range of motion, no pitting or edema. No cyanosis. NEUROLOGICAL: No focal neurological deficits. Moves all extremities spontaneously and on command. PSYCH: Normal mood, normal affect. SKIN: Warm, Dry, normal turgor, no rashes or lesions noted. Course - Re-evaluation Re-evalutation: 11/16/18 20:28 Patient presents with nausea, diarrhea, mild vomiting now all resolved. Has a long-standing history of this related to chemotherapy and is currently withholding chemotherapy secondary to this consequence of treatment. Here in the emergency room he has no focal abdominal tenderness, rebound or guarding. His abdomen is soft. The patient appears well, has tolerated 2 glasses of water without vomiting. He is adamant that he would like to go home effectively immediately. He denies any need for abdominal imaging and I do think this is reasonable particular given the long duration of his symptoms as well as lack of any abdominal pain by history or exam. His labs are otherwise unremarkable, do not suggest severe dehydration, no evidence of prerenal azotemia. Patient has tolerated oral intake without difficulty. At this time will discharge with return precautions and follow-up recommendations. Verbal discharge instructions given a the bedside and opportunity for questions given. Medication warnings reviewed. Patient is in agreement with this plan and has verbalized understanding of return precautions and the need for primary care follow-up in the next 24-72 hours. - Vital Signs Vital signs: Temp Pulse Resp BP Pulse Ox 98.1 F 67 20 151/76 H 95 11/16/18 18:25 11/16/18 18:25 11/16/18 18:25 11/16/18 18:25 11/16/18 18:25 - Laboratory Result Diagrams: 11/16/18 18:53 11/16/18 18:53 Laboratory results interpreted by me: 11/16/18 11/16/18 18:53 18:53 Hgb 12.8 L RDW 15.6 H Plt Count 124 L Lymphocytes % 12.8 L Chloride 110 H Glucose 140 H Alkaline Phosphatase 145 H Discharge - Discharge Clinical Impression: Nausea vomiting and diarrhea, Mild dehydration Condition: Good Disposition: HOME, SELF-CARE Additional Instructions: Please continue to follow with her oncologist regarding your concerns today. Your labs are otherwise reassuring. Continue to stay hydrated with plenty of solution such as Gatorade or Pedialyte. Please return if you develop severe abdominal pain, pass out, become unable to tolerate any oral fluids for 12 more hours, or any other symptoms that are concerning to you. Referrals: MARQUEZ SORENSON DO [Primary Care Provider] - Follow up as needed
[2018-11-16 20:32] VITALS: BP 126/78
== END 2018-11-16 20:41 | disposition home or self-care (01) ==
LOC: ER 18:11
DX: R11.2 Nausea with vomiting, unspecified (principal); R19.7 Diarrhea, unspecified; E86.0 Dehydration; R42 Dizziness and giddiness; I10 Essential (primary) hypertension; E11.9 Type 2 diabetes mellitus without complications; Z85.00 Personal history of malignant neoplasm of unspecified digestive organ; Z88.0 Allergy status to penicillin; Z88.2 Allergy status to sulfonamides; Z87.891 Personal history of nicotine dependence; Z90.49 Acquired absence of other specified parts of digestive tract; Z92.21 Personal history of antineoplastic chemotherapy
CPT/HCPCS: 99284; 96361; 96374; 36415; 87086; 85025; 80053; 81001; J2405; J7030

== ENCOUNTER 2018-11-22 20:21 | Emergency (ER) | payer OTHER, MEDICARE ==
[2018-11-22 20:43] VITALS: BP 145/75
== END 2018-11-22 22:00 | disposition left against medical advice (07) ==
LOC: ER 20:21
DX: Z53.21 Procedure and treatment not carried out due to patient leaving prior to being seen by health care provider (principal)

== ENCOUNTER → 2019-12-19 | Outpatient (CLI) | payer OTHER, MEDICARE ==
[~2019-12-19] MED LIST: LACTATED RINGERS 1000 ML IV PRN; PROPOFOL INJ 200 MG/20 ML VIAL IV ONE
== END ==
LOC: OD 11:17 → EDSTATUS 12-24 10:30
PROVIDERS: ATTEND Internal Medicine Gastroenterology
DX: Z03.818 Encounter for observation for suspected exposure to other biological agents ruled out (principal); D3A.092 Benign carcinoid tumor of the stomach
CPT/HCPCS: 87635; J2704

== ENCOUNTER 2020-05-29 07:24 | Day surgery (SDC) | payer OTHER, MEDICARE ==
[2020-05-29] MEDS ORDERED: PROPOFOL INJ 200 MG/20 ML VIAL IV ONE (07:36)
--- NOTE | 2020-05-29 10:22 | Operative Report ---
Operative Report DATE OF SURGERY: 05/29/20 Operative Report: The risks benefits and alternatives of the procedure explained to the patient in detail and informed consent is obtained.A GIF Olympus video scope was inserted into the patient's mouth and hypopharynx, the esophagus is identified intubated and insufflated, the scope was then advanced through the esophagus stomach and duodenum, retroflexion maneuver is done, the esophagus stomach and first and second portions of the duodenum examined PREOPERATIVE DIAGNOSIS: Evaluation for gastrointestinal stromal tumor POSTOPERATIVE DIAGNOSIS: Mild thickening in the gastric antrum status post biopsy. Several fundic gland polyp status post biopsy. Did not observe any submucosal lesions OPERATION: EGD with biopsy SURGEON: ENRIQUE GRAY ANESTHESIA: LMAC TISSUE REMOVED OR ALTERED: As noted above. COMPLICATIONS: None. ESTIMATED BLOOD LOSS: None. INTRAOPERATIVE FINDINGS: As noted above. PROCEDURE: Patient tolerated the procedure well. No immediate postprocedure complications are noted. Patient is discharged in good condition. Discharge date 05/29/2020. Discharge diet: Regular. Discharge activity: Regular. 2 to 3-week follow-up to discuss findings. Patient is instructed to call the office or proceed to the emergency room should there be any further problems or questions. Wait on the pathology.
[2020-05-29 11:04] VITALS: BP 135/67
== END 2020-05-29 11:05 | disposition home or self-care (01) ==
LOC: END 07:24
PROVIDERS: ATTEND Internal Medicine Gastroenterology
DX: K29.50 Unspecified chronic gastritis without bleeding (principal); K31.7 Polyp of stomach and duodenum; K21.9 Gastro-esophageal reflux disease without esophagitis; I10 Essential (primary) hypertension; E11.9 Type 2 diabetes mellitus without complications; Z79.4 Long term (current) use of insulin; Z03.818 Encounter for observation for suspected exposure to other biological agents ruled out; Z79.82 Long term (current) use of aspirin; Z79.899 Other long term (current) drug therapy; Z92.21 Personal history of antineoplastic chemotherapy
CPT/HCPCS: 43239; 82962; 87635; 88342 ×2; 88305 ×2; 00731; J2704; C9803; 731